=== PATIENT | male | born 1980 | race Caucasian/White ===

== ENCOUNTER 2017-09-05 07:37 | Emergency (ER) | payer OTHER ==
[~2017-09-05] VITALS: Ht 167.6 cm; Wt 63.0 kg
[~2017-09-05 07:37] MED LIST: Z.0.NO CURRENT MEDS
[2017-09-05 07:39] VITALS: BP 136/74; PULSE 65; RESP 12; TEMP 98.6; O2SAT 98
[2017-09-05] MEDS ORDERED: SODIUM CHLOR 0.9% 1000 ML INJ 1,000 ML IV SCH (07:56)
[2017-09-05] MEDS ORDERED: metroNIDAZOLE 500 MG TAB PO ONE (08:00)
[2017-09-05] MEDS ORDERED: LIDOCAINE HCL 1% 50 ML VIAL IM ONE (08:00)
[2017-09-05] MEDS ORDERED: ONDANSETRON HCL 4 MG/2 ML VIAL IVP ONE (08:00)
[2017-09-05] MEDS ORDERED: AZITHROMYCIN PWD FOR SUSP 1 GM PACKET PO ONE (08:00)
[2017-09-05] MEDS ORDERED: cefTRIAXone 250 MG VIAL IM ONE (08:00)
[2017-09-05] MEDS ORDERED: SODIUM CHLORIDE 0.9% FLUSH 10 ML FLUSH IV FLUSH PRN (08:00)
--- NOTE | 2017-09-05 08:00 | PD ---
HPI Chief Complaint: GI Complaint Time Seen by Provider: 07:55 Travel History International Travel<30 days: No Contact w/Intl Traveler<30days: No Traveled to known affect area: No History of Present Illness HPI 37-year-old male complains of vomiting. Shortly after eating anything or drinking anything the patient vomits. He denies abdominal pain. He has had no fever. No diarrhea. Unintentional weight loss reported. He reports always being thin. Severity moderate. He reports his ex-girlfriend had an STD however he is unsure of the type. PFSH Past Medical History Diminished Hearing: No Medical other: Yes (IV DRUG USER ) Tetanus Vaccination: Never Vaccinated Influenza Vaccination: No Past Surgical History Other Surgery: Yes (R ARM SURGERY ) Social History Alcohol Use: Yes (RARELY) Tobacco Use: Yes (1-2 PPD) Substance Use: Yes (IV DRUG USER , HEROIN USE YESTERDAY ) Allergies-Medications (Allergen,Severity, Reaction): Coded Allergies: No Known Allergies (Verified Adverse Reaction, Unknown, 09/05/17) Reported Meds & Prescriptions Reported Meds & Active Scripts Active Reglan (Metoclopramide HCl) 10 Mg Tab 10 Mg PO TIDAC Review of Systems Except as stated in HPI: all other systems reviewed are Neg Physical Exam Narrative GENERAL: 37-year-old male BMI 22.4 cooperative pleasant Vital Signs Date Time Temp Pulse Resp B/P (MAP) Pulse Ox O2 Delivery O2 Flow Rate FiO2 09/05/17 07:39 98.6 65 12 136/74 (94) 98 SKIN: Warm and dry. HEAD: Atraumatic. Normocephalic. EYES: Pupils equal and round. No scleral icterus. No injection or drainage. ENT: No nasal bleeding or discharge. Mucous membranes pink and moist. NECK: Trachea midline. No JVD. CARDIOVASCULAR: Regular rate and rhythm. RESPIRATORY: No accessory muscle use. Clear to auscultation. Breath sounds equal bilaterally. GASTROINTESTINAL: Abdomen soft, non-tender, nondistended. Hepatic and splenic margins not palpable. MUSCULOSKELETAL: Extremities without clubbing, cyanosis, or edema. No obvious deformities. NEUROLOGICAL: Awake and alert. No obvious cranial nerve deficits. Motor grossly within normal limits. Five out of 5 muscle strength in the arms and legs. Normal speech. PSYCHIATRIC: Appropriate mood and affect; insight and judgment normal. Data Data Last Documented VS Vital Signs Date Time Temp Pulse Resp B/P (MAP) Pulse Ox O2 Delivery O2 Flow Rate FiO2 09/05/17 10:54 98 09/05/17 07:39 98.6 65 12 Orders Orders Complete Blood Count With Diff (09/05/17 07:56) Comprehensive Metabolic Panel (09/05/17 07:56) Ct Abd/Pel W Iv Contrast(Rout) (09/05/17 07:56) Iv Access Insert/Monitor (09/05/17 07:56) Ecg Monitoring (09/05/17 07:56) Oximetry (09/05/17 07:56) Ondansetron Inj (Zofran Inj) (09/05/17 08:00) Sodium Chlor 0.9% 1000 Ml Inj (Ns 1000 M (09/05/17 07:56) Sodium Chloride 0.9% Flush (Ns Flush) (09/05/17 08:00) Azithromycin Powd Pack (Zithromax Powd P (09/05/17 08:00) Ceftriaxone Inj (Rocephin Inj) (09/05/17 08:00) Lidocaine 1% Inj (50 Ml) (Xylocaine 1% I (09/05/17 08:00) Metronidazole (Flagyl) (09/05/17 08:00) Oral Contrast - Adult (09/05/17 08:11) Diatrizoate Liq ( Gastroview Liq) (09/05/17 08:14) Lidocaine Pf 1% Inj (Xylocaine-Mpf 1% In (09/05/17 09:10) Iohexol 350 Inj (Omnipaque 350 Inj) (09/05/17 10:12) Ed Discharge Order (09/05/17 10:35) Labs Laboratory Tests Test 09/05/17 08:00 White Blood Count 7.2 TH/MM3 Red Blood Count 5.10 MIL/MM3 Hemoglobin 16.4 GM/DL Hematocrit 48.0 % Mean Corpuscular Volume 94.0 FL Mean Corpuscular Hemoglobin 32.2 PG Mean Corpuscular Hemoglobin Concent 34.2 % Red Cell Distribution Width 13.7 % Platelet Count 211 TH/MM3 Mean Platelet Volume 7.9 FL Neutrophils (%) (Auto) 49.8 % Lymphocytes (%) (Auto) 32.7 % Monocytes (%) (Auto) 11.8 % Eosinophils (%) (Auto) 4.5 % Basophils (%) (Auto) 1.2 % Neutrophils # (Auto) 3.6 TH/MM3 Lymphocytes # (Auto) 2.4 TH/MM3 Monocytes # (Auto) 0.8 TH/MM3 Eosinophils # (Auto) 0.3 TH/MM3 Basophils # (Auto) 0.1 TH/MM3 CBC Comment DIFF FINAL Differential Comment Blood Urea Nitrogen 6 MG/DL Creatinine 0.80 MG/DL Random Glucose 96 MG/DL Total Protein 7.0 GM/DL Albumin 3.4 GM/DL Calcium Level 8.6 MG/DL Alkaline Phosphatase 66 U/L Aspartate Amino Transf (AST/SGOT) 31 U/L Alanine Aminotransferase (ALT/SGPT) 42 U/L Total Bilirubin 0.5 MG/DL Sodium Level 139 MEQ/L Potassium Level 4.3 MEQ/L Chloride Level 103 MEQ/L Carbon Dioxide Level 31.7 MEQ/L Anion Gap 4 MEQ/L Estimat Glomerular Filtration Rate 110 ML/MIN MDM Medical Decision Making Medical Screen Exam Complete: Yes Emergency Medical Condition: Yes Medical Record Reviewed: Yes Differential Diagnosis Obstruction, SMA syndrome, mass Narrative Course CBC & BMP Diagram 09/05/17 08:00 Total Protein 7.0, Albumin 3.4, Calcium Level 8.6, Alkaline Phosphatase 66, Aspartate Amino Transf (AST/SGOT) 31, Alanine Aminotransferase (ALT/SGPT) 42, Total Bilirubin 0.5 Last Impressions Abdomen/Pelvis CT 09/05/17 0756 Signed Impressions: Service Date/Time: Tuesday, September 05, 2017 10:03 - CONCLUSION: 1. Several benign-appearing splenic cyst. 2. Moderate stool throughout colon. 3. No definite acute pathology. Scott Hair MD The patient tolerated oral contrast without difficulty. He has not vomited here. Patient will ultimately require further evaluation by GI. Return precautions discussed. Prescription as below. Empiric coverage for potential STD exposure provided here. Diagnosis Primary Impression: Recurrent vomiting Referrals: [facility] 2 days Med/Other Pt SpecificInfo: Prescription(s) given Scripts Metoclopramide (Reglan) 10 Mg Tab 10 MG PO TIDAC for Nausea/Vomiting, #20 TAB 0 Refills Prov: Shar Skaggs MD 09/05/17 Disposition: 01 DISCHARGE HOME Condition: Stable Shar Skaggs MD Sep 05, 2017 07:59
[2017-09-05] MEDS ORDERED: DIATRIZOATE MEGLUM/DIATRIZOATE SOD 9 ML CUP ONE (08:14)
[2017-09-05 08:16] LABS: HEMOGLOBIN 16.4 GM/DL (13.0-17.0); WHITE BLOOD COUNT 7.2 TH/MM3 (4.0-11.0)
[2017-09-05 08:17] LABS: AUTOMATED NEUTROPHIL # 3.6 TH/MM3 (1.8-7.7); BASOPHIL # 0.1 TH/MM3 (0-0.2); BASOPHIL % 1.2 % (0.0-2.0); EOSINOPHIL # 0.3 TH/MM3 (0-0.4); EOSINOPHIL % 4.5 % (0.0-4.0); LYMPH % 32.7 % (9.0-44.0); LYMPHOCYTE # 2.4 TH/MM3 (1.0-4.8); MEAN CORPUSCULAR HEMOGLOBIN 32.2 PG (27.0-34.0); MEAN CORPUSCULAR HGB CONC 34.2 % (32.0-36.0); MEAN PLATELET VOLUME 7.9 FL (7.0-11.0); MONO % 11.8 % (0.0-8.0); MONOCYTE # 0.8 TH/MM3 (0-0.9); NEUT % 49.8 % (16.0-70.0); PLATELET COUNT 211 TH/MM3 (150-450); RED CELL DISTRIBUTION WIDTH 13.7 % (11.6-17.2)
[2017-09-05 08:38] LABS: ALKALINE PHOSPHATASE 66 U/L (45-117); TOTAL BILIRUBIN ADULT 0.5 MG/DL (0.2-1.0)
[2017-09-05 08:48] LABS: ALBUMIN 3.4 GM/DL (3.4-5.0); ALT (GPT) 42 U/L (12-78); AST (GOT) 31 U/L (15-37); BICARBONATE 31.7 MEQ/L (21.0-32.0); BLOOD UREA NITROGEN 6 MG/DL (7-18); CALCIUM 8.6 MG/DL (8.5-10.1); CHLORIDE 103 MEQ/L (98-107); GLOMERULAR FILTRATION RATE 110 ML/MIN (>89); GLUCOSE,RANDOM 96 MG/DL (74-106); SODIUM (NA) 139 MEQ/L (136-145)
[2017-09-05] MEDS: LIDOCAINE HCL 1% PF 30 ML VIAL ONE ×2 (09:10→09:36)
[2017-09-05] MEDS ORDERED: IOHEXOL 350 MG/ML 10 ML VIAL (for RAD DIAG) IVCONTRAST ONE (10:12)
--- NOTE | 2017-09-05 10:27 | RADRPT ---
EXAM DATE/TIME: 09/05/2017 10:03 [facility] COMPARISON: No previous studies available for comparison. INDICATIONS : Nausea and vomiting for one week. IV CONTRAST: 70 cc Omnipaque 350 (iohexol) IV ORAL CONTRAST: Partial prescribed oral contrast ingested. RADIATION DOSE: 4.62 CTDIvol (mGy) MEDICAL HISTORY : None SURGICAL HISTORY : None. ENCOUNTER: Initial ACUITY: 1 day PAIN SCALE: 0/10 LOCATION: Bilateral abdomen TECHNIQUE: Volumetric scanning of the abdomen and pelvis was performed. Using automated exposure control and ad justment of the mA and/or kV according to patient size, radiation dose was kept as low as reasonably achievable to obtain optimal diagnostic quality images. DICOM format image data is available electro nically for review and comparison. FINDINGS: LOWER LUNGS: The visualized lower lungs are clear. LIVER: Homogeneous density without lesion. There is no dilation of the biliary tree. No calcified gallston es. SPLEEN: The spleen is within normal limits for size. There are several benign-appearing cysts along the infer ior posterior aspect of the spleen. The cysts measure approximately 1.6 cm. PANCREAS: Within normal limits. KIDNEYS: Normal in size and shape. There is no mass, stone or hydronephrosis. ADRENAL GLANDS: Within normal limits. VASCULAR: There is no aortic aneurysm. BOWEL/MESENTERY: The stomach, small bowel, and colon demonstrate no acute abnormality. There is no free intraperitone al air. There is a moderate amount of stool throughout the colon. No inflammatory changes are seen. T here is a trace of fluid in the pelvis. ABDOMINAL WALL: Within normal limits. RETROPERITONEUM: There is no lymphadenopathy. BLADDER: No wall thickening or mass. REPRODUCTIVE: Within normal limits. INGUINAL: There is no lymphadenopathy or hernia. MUSCULOSKELETAL: Within normal limits for patient age. CONCLUSION: 1. Several benign-appearing splenic cyst. 2. Moderate stool throughout colon. 3. No definite acute pathology. Scott Hair MD on September 05, 2017 at 10:20 Board Certified Radiologist. This report was verified electronically.
[2017-09-05] MEDS ORDERED: REGL10TA5 PO (10:34)
== END 2017-09-05 11:03 | disposition home or self-care (01) ==
LOC: NEPC 07:37
DX: R11.10 Vomiting, unspecified (principal); D73.4 Cyst of spleen; K59.00 Constipation, unspecified; F17.200 Nicotine dependence, unspecified, uncomplicated; F11.90 Opioid use, unspecified, uncomplicated
CPT/HCPCS: 74177; 80053; 85025; 96361; 96372; 96374; 99284; J0696; J2405; J7030; Q9963; Q9967